=== PATIENT | male | born 1935 | race Two or more races ===

== ENCOUNTER 2020-06-30 09:28 | Outpatient (CLI) | payer OTHER ==
[~2020-06-30 09:28] MED LIST: ASA81 MG; ATENOLOL25 MG
== END 2020-06-30 09:43 | disposition home or self-care (01) ==
LOC: NUCLEAR 09:28
PROVIDERS: ATTEND Urology
DX: N28.1 Cyst of kidney, acquired (principal); C61 Malignant neoplasm of prostate
CPT/HCPCS: 78306; A9503